=== PATIENT | male | born 1995 | race Two or more races ===

== ENCOUNTER 2024-10-19 17:46 | Emergency (ER) | payer MEDICAID ==
[~2024-10-19] VITALS: Ht 167.6 cm; Wt 68.0 kg
[2024-10-19 18:17] LABS: BASOPHILS % (AUTO) 0.4 % (0.0-2.0); EOSINOPHILS # (AUTO) 0.2 K/uL (0.0-0.7); HEMATOCRIT 42 % (39-51); HEMOGLOBIN 14.5 g/dL (13.5-17.5); LYMPHOCYTES % (AUTO) 22.5 % (20.0-44.0); MEAN CORPUSCULAR HEMOGLOBIN 28 PG (26.0-33.0); MEAN CORPUSCULAR HGB CONC 35 g/dl (31.0-36.0); MEAN CORPUSCULAR VOLUME 80 fL (80-96); MONOCYTES # (AUTO) 0.3 K/uL (0.1-1.30); MONOCYTES % (AUTO) 6.9 % (2.0-12.0); NEUTROPHILS # (AUTO) 2.8 K/uL (1.8-8.9); NEUTROPHILS % (AUTO) 65.2 % (43.0-81.0); PLATELET COUNT (AUTO) 142 K/uL (150-450); RED BLOOD CELL COUNT(AUTO) 5.21 MIL/uL (4.5-6.0); RED CELL DISTRIBUTION WIDTH 13.9 % (11.5-15.0); WHITE BLOOD COUNT (AUTO) 4.3 K/uL (4.3-11.0)
[2024-10-19 18:31] LABS: CALCIUM, SERUM 8.9 mg/dL (8.5-10.1); CREATININE 0.7 mg/dL (0.6-1.3); POTASSIUM 2.9 mmol/L (3.5-5.1)
[2024-10-19 18:36] LABS: ALBUMIN 3.8 g/dL (3.4-5.0); BILIRUBIN,DIRECT 0.1 mg/dL (0.0-0.2); BILIRUBIN,TOTAL 0.5 mg/dL (0.2-1.0); TOTAL PROTEIN, SERUM 6.9 g/dL (6.4-8.2)
[2024-10-19 18:37] LABS: SALICYLATE 0.6 mg/dL (2.8-20.0)
[2024-10-19 19:04] LABS: APPEARANCE,URINE CLEAR (CLEAR); BILIRUBIN,URINE NEGATIVE (NEGATIVE); BLOOD, URINE NEGATIVE Ery/uL (NEGATIVE); COLOR,URINE YELLOW (YELLOW); KETONES,URINE NEGATIVE (NEGATIVE); LEUKOCYTE ESTERASE ,URINE NEGATIVE (NEGATIVE); NITRITE, URINE NEGATIVE (NEGATIVE); PROTEIN,URINE NEGATIVE (NEGATIVE); UGLUCOSE NEGATIVE (NEGATIVE)
[2024-10-19 19:19] LABS: RBC,URINE 0-2 /HPF (0-2); WBC,URINE 0-2 /HPF (0-3)
[2024-10-19 19:20] LABS: ADD URINE CULTURE NO; BACTERIA,URINE Rare /HPF (None Seen); SQUAMOUS EPITHELIAL CELL,UR 0-2 /HPF (None Seen)
[2024-10-19 19:22] LABS: BARBITURATE, URINE NEGATIVE (NEGATIVE); BENZODIAZEPINE, URINE NEGATIVE (NEGATIVE); COCCAINE, URINE NEGATIVE (NEGATIVE); OPIATE, URINE NEGATIVE (NEGATIVE); PHENCYCLIDINE SCREEN,URINE NEGATIVE (NEGATIVE)
[2024-10-19 19:23] LABS: AMPHETAMINE, URINE POSITIVE (NEGATIVE); CANNABINOID, URINE POSITIVE (NEGATIVE)
[2024-10-19] MEDS ORDERED: POTASSIUM CL. PREMIX PERIPHER. 50 ML ONE ×2 (19:47→20:39)
[2024-10-19] MEDS: POTASSIUM CL. PREMIX PERIPHER. 50 ML IV SCH (19:56)
[2024-10-19 22:06] VITALS: BP 130/75; TEMP 98.5; O2SAT 99
== END 2024-10-19 21:30 | disposition home or self-care (01) ==
LOC: EDBD 17:53 → ER 17:53
DX: F19.10 Other psychoactive substance abuse, uncomplicated (principal)
CPT/HCPCS: 99283; 85025; 80048; 80076; 81001; 36415; 80143; 80320; 80307; J3480 ×2; A4223; G0480

== ENCOUNTER 2024-11-05 18:24 | Emergency (ER) | payer MEDICAID ==
[~2024-11-05] VITALS: Ht 165.1 cm; Wt 63.5 kg
[2024-11-05 18:28] VITALS: BP 122/69; TEMP 98.1; O2SAT 100
== END 2024-11-05 20:13 | disposition home or self-care (01) ==
LOC: ER 18:29
DX: R53.1 Weakness (principal); F19.10 Other psychoactive substance abuse, uncomplicated; Z59.00 Homelessness unspecified
CPT/HCPCS: 82962-TC